=== PATIENT | female | born 1960 | race Caucasian/White ===

== ENCOUNTER 2017-03-26 12:29 | Emergency (ER) | payer OTHER ==
[~2017-03-26] VITALS: Ht 157.5 cm; Wt 90.4 kg
[~2017-03-26 12:29] MED LIST: ATARAX,VISTARIL25 MG PO; HEP LOCK F IV; NOHOMEMEDS; PREDNISONE20 MG PO; ROCEPHIN1 GM/50 ML IV; TRIANEX17 GM TP
[2017-03-26 13:04] LABS: MCH 27.6 PG (29.0-34.0); MCHC 32.6 G/DL (30.0-36.0); MCV 84.7 FL (83-99); MEAN PLAT.VOLUME 9.5 uM^3 (9.5-12.4); PLATELET COUNT 291 K/uL (156-360); RBC DIS.WIDTH-SD 40.1 % (39-53); RED BLOOD COUNT 4.96 M/uL (3.80-5.20); WHITE BLOOD COUNT 7.1 K/uL (4.1-10.2)
[2017-03-26 13:13] LABS: CHLORIDE 107 mEq/L (99-109); POTASSIUM 4.5 mEq/L (3.7-5.4); SODIUM 141 mEq/L (136-147)
[2017-03-26 13:16] LABS: GLUCOSE 107 mg/dL (70-99)
[2017-03-26 13:17] LABS: ANION GAP 10 MEQ/L (2-14); TOTAL BILIRUBIN 0.3 mg/dL (0.0-1.0)
[2017-03-26 13:19] LABS: ALKALINE PHOSPHATASE 85 IU/L (3-129); GFR ESTIMATE (CALCULATED) > 59 mL/min/
[2017-03-26 13:20] LABS: UREA NITROGEN (BUN) 18 mg/dL (9-23)
[2017-03-26 15:47] LABS: ADD MIUA? YES; BILIRUBIN NEGATIVE; BLOOD SMALL; COLOR STRAW ((YELLOW)); GLUCOSE (STRIP) NEGATIVE; KETONES NEGATIVE; LEUKOCYTES SMALL; NITRITE NEGATIVE; PROTEIN (STRIP) NEGATIVE; SPECIFIC GRAVITY 1.006 (1.000-1.030); UROBILINOGEN 0.2 MG/DL (0.2-1.0)
[2017-03-26 15:55] LABS: BACTERIA NONE SEEN /HPF; EPITHELIAL CELLS RARE /HPF; MUCUS TRACE /LPF; RED BLOOD CELLS 0-5 /HPF (0-5); UCUL ADDED? YES
[2017-03-26] MEDS ORDERED: MACROBID100 MG PO (17:02)
[2017-03-26] MEDS ORDERED: BENTYL20 MG PO (17:02)
[2017-03-26] MEDS ORDERED: COLACE100 MG PO (17:02)
[2017-03-26 17:27] VITALS: BP 130/91
== END 2017-03-26 17:29 | disposition home or self-care (01) ==
LOC: EME 12:29
DX: N39.0 Urinary tract infection, site not specified (principal); K59.00 Constipation, unspecified; R10.30 Lower abdominal pain, unspecified; E78.5 Hyperlipidemia, unspecified; I10 Essential (primary) hypertension; K21.9 Gastro-esophageal reflux disease without esophagitis; Z87.891 Personal history of nicotine dependence
CPT/HCPCS: 74020; 80053; 81003; 85027; 87086; 99281; 99284

== ENCOUNTER 2017-03-29 10:49 | Emergency (ER) | payer OTHER ==
[~2017-03-29] VITALS: Ht 157.5 cm; Wt 90.7 kg
[~2017-03-29 10:49] MED LIST changes: +BENTYL20 MG PO; +COLACE100 MG PO; +MACROBID100 MG PO
[2017-03-29 12:52] LABS: ADD MIUA? NO; BILIRUBIN NEGATIVE; BLOOD NEGATIVE; COLOR STRAW ((YELLOW)); GLUCOSE (STRIP) NEGATIVE; KETONES NEGATIVE; LEUKOCYTES NEGATIVE; NITRITE NEGATIVE; PROTEIN (STRIP) NEGATIVE; SPECIFIC GRAVITY 1.009 (1.000-1.030); UCUL ADDED? NO; UROBILINOGEN 0.2 MG/DL (0.2-1.0)
[2017-03-29 13:14] LABS: HEMATOCRIT 42.3 % (36.0-46.0); MCH 27.2 PG (29.0-34.0); MCHC 31.9 G/DL (30.0-36.0); MCV 85.1 FL (83-99); MEAN PLAT.VOLUME 9.7 uM^3 (9.5-12.4); PLATELET COUNT 303 K/uL (156-360); RBC DIS.WIDTH-CV 12.9 % (11.8-14.6); RBC DIS.WIDTH-SD 39.6 % (39-53); RED BLOOD COUNT 4.97 M/uL (3.80-5.20); WHITE BLOOD COUNT 6.9 K/uL (4.1-10.2)
[2017-03-29 13:21] LABS: CHLORIDE 104 mEq/L (99-109); POTASSIUM 4.2 mEq/L (3.7-5.4); SODIUM 141 mEq/L (136-147)
[2017-03-29 13:23] LABS: GLUCOSE 88 mg/dL (70-99)
[2017-03-29 13:24] LABS: ANION GAP 13 MEQ/L (2-14)
[2017-03-29 13:25] LABS: TOTAL BILIRUBIN 0.3 mg/dL (0.0-1.0)
[2017-03-29 13:27] LABS: ALKALINE PHOSPHATASE 92 IU/L (3-129); GFR ESTIMATE (CALCULATED) > 59 mL/min/
[2017-03-29 13:28] LABS: UREA NITROGEN (BUN) 18 mg/dL (9-23)
[2017-03-29 13:40] LABS: QUANTITATIVE HCG < 4.0 MIU/ML
[2017-03-29 13:48] LABS: LIPASE 19 U/L (1.0-51.0)
[2017-03-29] MEDS ORDERED: ULTRACET1 TABLET PO (18:16)
[2017-03-29] MEDS ORDERED: MOTRIN600 MG PO (18:16)
[2017-03-29] MEDS ORDERED: ZOFRAN ODT4 MG PO (18:16)
[2017-03-29] MEDS ORDERED: BENTYL20 MG PO (18:21)
[2017-03-29 19:21] VITALS: BP 138/111
== END 2017-03-29 19:28 | disposition home or self-care (01) ==
LOC: EME 10:49
DX: R10.84 Generalized abdominal pain (principal); R11.2 Nausea with vomiting, unspecified; I10 Essential (primary) hypertension; E78.5 Hyperlipidemia, unspecified; K21.9 Gastro-esophageal reflux disease without esophagitis; Z90.49 Acquired absence of other specified parts of digestive tract; Z87.891 Personal history of nicotine dependence
CPT/HCPCS: 74177; 80053; 81003; 83605; 83690; 84702; 85027; 99281; 99285; J1885; J2405; J7030

== ENCOUNTER 2017-10-19 19:53 | Emergency (ER) | payer OTHER ==
[~2017-10-19] VITALS: Ht 157.5 cm; Wt 95.9 kg
[~2017-10-19 19:53] MED LIST changes: +MOTRIN600 MG PO; +ULTRACET1 TABLET PO; +ZOFRAN ODT4 MG PO
[2017-10-19 20:47] LABS: MCH 27.9 PG (29.0-34.0); MCHC 33.3 G/DL (30.0-36.0); MCV 83.7 FL (83-99); PLATELET COUNT 326 K/uL (156-360); RBC DIS.WIDTH-CV 12.6 % (11.8-14.6); RBC DIS.WIDTH-SD 38.4 % (39-53); RED BLOOD COUNT 5.02 M/uL (3.80-5.20); WHITE BLOOD COUNT 11.2 K/uL (4.1-10.2)
[2017-10-19 20:49] LABS: ALBUMIN 4.8 g/dL (3.2-4.8)
[2017-10-19 20:50] LABS: AMYLASE 59 IU/L (1-118); CHLORIDE 103 mEq/L (99-109); POTASSIUM 4.5 mEq/L (3.7-5.4); SODIUM 142 mEq/L (136-147)
[2017-10-19 20:52] LABS: GLUCOSE 99 mg/dL (70-99); TOTAL PROTEIN 8.2 g/dL (6.4-8.3)
[2017-10-19 20:54] LABS: TOTAL BILIRUBIN 0.4 mg/dL (0.0-1.0)
[2017-10-19 20:55] LABS: ALKALINE PHOSPHATASE 97 IU/L (3-129)
[2017-10-19 20:56] LABS: CREATININE 0.8 mg/dL (0.6-1.3); GFR ESTIMATE (CALCULATED) > 59 mL/min/
[2017-10-19 20:57] LABS: AST (GOT) 28 IU/L (2-34); UREA NITROGEN (BUN) 20 mg/dL (9-23)
[2017-10-19 20:58] LABS: ALT (GPT) 23 IU/L (3-49)
[2017-10-19 20:59] LABS: LIPASE 15 U/L (1.0-51.0)
[2017-10-19 21:04] LABS: TROP-I INTERPRETATION NEGATIVE; TROPONIN-I 0.03 ng/mL (0.0-0.30)
[2017-10-19 23:19] LABS: TROP-I INTERPRETATION NEGATIVE; TROPONIN-I < 0.01 ng/mL (0.0-0.30)
[2017-10-19] MEDS ORDERED: CARAFATE1 GM PO (23:36)
[2017-10-19] MEDS ORDERED: OMEPRAZOLE40 M1 PO (23:36)
[2017-10-19 23:43] VITALS: BP 139/60
== END 2017-10-19 23:47 | disposition home or self-care (01) ==
LOC: EME 19:53
PROVIDERS: Physician Assistant
DX: R10.12 Left upper quadrant pain (principal); R07.89 Other chest pain; R06.02 Shortness of breath; N83.202 Unspecified ovarian cyst, left side; I10 Essential (primary) hypertension; E78.5 Hyperlipidemia, unspecified; K21.9 Gastro-esophageal reflux disease without esophagitis; Z87.891 Personal history of nicotine dependence
CPT/HCPCS: 71275; 74174; 80053; 82150; 83690; 84484; 85027; 93005; 99281; 99285; J1885; J3010; J7030